=== PATIENT | male | born 1995 | race African-American/Black ===

== ENCOUNTER 2018-05-09 15:49 | Emergency (ER) | payer OTHER ==
[~2018-05-09] VITALS: Ht 188 cm; Wt 79.4 kg
[~2018-05-09 15:49] MED LIST: ZOFRAN ODT4 MG PO
[2018-05-09 16:22] VITALS: BP 149/82
[2018-05-09] MEDS ORDERED: BACTRIM DS TAB1 EACH PO (16:24)
[2018-05-09] MEDS ORDERED: IBUPROFEN 800800 M1 PO (16:24)
== END 2018-05-09 17:42 | disposition home or self-care (01) ==
LOC: ER 15:49
DX: L02.416 Cutaneous abscess of left lower limb (principal)

== ENCOUNTER 2020-06-17 20:13 | Emergency (ER) | payer OTHER ==
[~2020-06-17] VITALS: Ht 182.9 cm; Wt 95.3 kg
[~2020-06-17 20:13] MED LIST changes: +BACTRIM DS TAB1 EACH PO; +IBUPROFEN 800800 M1 PO
[2020-06-17 22:59] VITALS: BP 136/98
== END 2020-06-17 23:00 | disposition home or self-care (01) ==
LOC: ER 20:13
DX: S02.2XXA Fracture of nasal bones, initial encounter for closed fracture (principal); M79.644 Pain in right finger(s); R07.89 Other chest pain; V49.9XXA Car occupant (driver) (passenger) injured in unspecified traffic accident, initial encounter; Y93.89 Activity, other specified; Y92.89 Other specified places as the place of occurrence of the external cause; Y99.8 Other external cause status